=== PATIENT | male | born 1985 | race Caucasian/White ===

== ENCOUNTER 2018-05-16 17:40 | Emergency (ER) | payer OTHER, SELFPAY ==
[~2018-05-16 17:40] MED LIST: ISOVUE-370 76%-LOCM 1 ML ONE
--- NOTE | 2018-05-16 18:03 | RAD ---
SINGLE VIEW OF THE CHEST: 05/16/18 COMPARISON: None. HISTORY: Chest pain. FINDINGS: Single view of the chest shows a normal sized cardiomediastinal silhouette. The patient is status pos t aortic valve repair. There is no evidence of consolidation, mass, or pleural effusion. IMPRESSION: No evidence of acute cardiopulmonary disease. POS: [facility]
[2018-05-16 18:18] LABS: #Basophils 0.1 thou/uL (0.0-0.2); #Eosinphils 0.1 thou/uL (0.0-0.7); #Lymphocytes 1.6 thou/uL (1.20-3.40); #Monocytes 0.5 thou/uL (0.11-0.59); #Neutrophils 8.7 thou/uL (1.40-6.50); %Basophils 0.5 % (0.0-1.0); %Eosinophils 0.6 % (0.0-10.0); %Lymphocytes 14.9 % (21.0-51.0); Hemoglobin 14.3 g/dL (14.0-18.0); Mean Corpuscular HGB CONC 33.8 g/dL (32.0-36.0); Mean Corpuscular Hemoglobin 30.8 pg (27.0-31.0); Mean Platelet Volume 9.6 fL (7.4-10.4); Platelet Count 189 thou/uL (130-400); RBC Distribution Width 11.7 % (11.5-14.5); Red Blood Cell (RBC) Count 4.64 mill/uL (4.70-6.10); White Blood Cell (WBC) Count 10.9 thou/uL (4.8-10.8)
[2018-05-16 18:23] LABS: INR-International Normal Ratio 1.7; Prothrombin Time 19.8 SEC (12.0-14.7)
[2018-05-16 18:33] LABS: ALT (SGPT) 14 U/L (8-55); AST (SGOT) 17 U/L (5-34); Albumin 4.1 g/dL (3.5-5.0); Alkaline Phosphatase 88 U/L (40-150); Anion Gap 13 mmol/L (10-20); BUN (Urea Nitrogen) 13 mg/dL (8.9-20.6); Bilirubin, Total 0.4 mg/dL (0.2-1.2); CK (CPK) 111 U/L (30-200); Calc. Creatinine Clearance 0 mL/min (70-130); Calcium 9.2 mg/dL (7.8-10.44); Carbon Dioxide 25 mmol/L (22-29); Chloride 105 mmol/L (98-107); Estimated GFR-MDRD 86; Globulin 2.8 g/dL (2.4-3.5); Glucose 110 mg/dL (70-105); Lipase 26 U/L (8-78); Magnesium 2.2 mg/dL (1.6-2.6); Potassium 3.4 mmol/L (3.5-5.1); Protein, Total 6.9 g/dL (6.0-8.3); Sodium 140 mmol/L (136-145)
[2018-05-16 18:38] LABS: CKMB 0.7 ng/mL (0-6.6); Troponin I Less than 0.010 ng/mL (< 0.028)
--- NOTE | 2018-05-16 19:20 | CT ---
CTA OF THE CHEST AND ABDOMEN WITH CONTRAST 05/16/18 COMPARISON: None. HISTORY: Right sided chest pain that radiates downward towards the back that began just prior to arrival while using a sledgehammer. TECHNIQUE: Multiple contiguous axial images were obtained in a CTA of the chest and abdomen with contrast per [facility] dissection protocol. 3D sagittal and coronal MIP reformats were performed. FINDINGS: The heart is normal in size without focal cardiac abnormality. There is mild ectasia of the ascending aorta which measures 4.0 cm in greatest dimension. There is no evidence of dissection of the aorta. This includes the thoracic and abdominal aorta. No pulmonary nodules or infiltrates are seen in the lungs. No pneumothorax or pleural effusions are s een. The liver, gallbladder, adrenal glands, spleen, and pancreas are unremarkable. There are hypodense re gions in both kidneys measuring up to 2.6 cm in size which likely represents cysts. There appears to be layering calcification within the cyst in the left kidney. The visualized large and small bowel are unremarkable. No abdominal adenopathy is seen. The celiac trunk SMA and ALEXANDER are patent. A single renal artery is seen on each side without significa nt atherosclerotic disease. The chest and abdominal wall soft tissues are unremarkable. The bones are unremarkable. IMPRESSION: 1. No evidence of aortic dissection. 2. Bilateral renal cysts. POS: [facility]
== END 2018-05-16 21:36 | disposition home or self-care (01) ==
LOC: ERS 17:40
DX: S23.41XA Sprain of ribs, initial encounter (principal); I10 Essential (primary) hypertension; F32.9 Major depressive disorder, single episode, unspecified; F17.210 Nicotine dependence, cigarettes, uncomplicated; Z79.899 Other long term (current) drug therapy; X50.9XXA Other and unspecified overexertion or strenuous movements or postures, initial encounter
CPT/HCPCS: 71045; 71275; 80053; 82553; 83690; 83735; 84484; 85025; 85610; 93005; 96361; 96374; J2270

== ENCOUNTER 2019-04-04 08:36 | Observation (INO) | payer OTHER, SELFPAY ==
[2019-04-04 08:55] LABS: #Eosinphils 0.1 thou/uL (0.0-0.7); #Lymphocytes 1.4 thou/uL (1.20-3.40); #Monocytes 0.4 thou/uL (0.11-0.59); #Neutrophils 5.3 thou/uL (1.40-6.50); %Basophils 0.3 % (0.0-1.0); %Eosinophils 1.7 % (0.0-10.0); %Monocytes 5.4 % (0.0-10.0); %Neutrophils 73.6 % (42.0-75.0); Hemoglobin 15.1 g/dL (14.0-18.0); Mean Corpuscular HGB CONC 33.5 g/dL (32.0-36.0); Mean Corpuscular Hemoglobin 30.6 pg (27.0-31.0); Mean Corpuscular Volume 91.3 fL (78.0-98.0); Mean Platelet Volume 8.9 fL (7.4-10.4); Platelet Count 173 thou/uL (130-400); RBC Distribution Width 12.7 % (11.5-14.5); Red Blood Cell (RBC) Count 4.92 mill/uL (4.70-6.10); White Blood Cell (WBC) Count 7.2 thou/uL (4.8-10.8)
[2019-04-04] MEDS ORDERED: Acetaminophen 500 MG TAB ONE (08:58)
[2019-04-04] MEDS ORDERED: Nitroglycerin 0.4 MG TAB 1 EACH ONE (08:58)
[2019-04-04 09:14] LABS: PTT 27.6 SEC (22.9-36.1)
[2019-04-04 09:40] LABS: ALT (SGPT) 20 U/L (8-55); AST (SGOT) 18 U/L (5-34); Albumin 4.3 g/dL (3.5-5.0); Alkaline Phosphatase 76 U/L (40-150); Anion Gap 11 mmol/L (10-20); BUN (Urea Nitrogen) 17 mg/dL (8.9-20.6); Bilirubin, Total 0.5 mg/dL (0.2-1.2); CK (CPK) 111 U/L (30-200); Calc. Creatinine Clearance 0 mL/min (70-130); Carbon Dioxide 29 mmol/L (22-29); Chloride 106 mmol/L (98-107); Estimated GFR-MDRD Greater than 90; Globulin 2.6 g/dL (2.4-3.5); Glucose 63 mg/dL (70-105); Lipase 22 U/L (8-78); Potassium 3.7 mmol/L (3.5-5.1); Protein, Total 6.9 g/dL (6.0-8.3); Sodium 142 mmol/L (136-145)
--- NOTE | 2019-04-04 09:42 | RAD ---
RADIOGRAPH CHEST 1 VIEW: DATE: 04-04-19 HISTORY: 34-year-old male with acute chest pain. FINDINGS: There are no air space densities, pulmonary edema, pneumothorax, or cardiomegaly. The lateral costop hrenic angles are sharp. There is a prosthetic cardiac valve. There are sternotomy wires. There is no interval change compared to 05-16-18. IMPRESSION: 1. No acute cardiopulmonary findings. 2. Status post aortic valve replacement. bradley POS: [facility]
[2019-04-04] MEDS ORDERED: Morphine 4 MG/ML VIAL ONE (10:32)
[2019-04-04] MEDS ORDERED: Enoxaparin Sodium 80 MG/0.8 ML SYRINGE ONE (10:55)
[2019-04-04] MEDS ORDERED: Warfarin Sodium 5 MG TAB PO SCH (11:15)
[2019-04-04 12:30] LABS: Troponin I Less than 0.010 ng/mL (< 0.028)
[2019-04-04 13:02] VITALS: BMI 23.0
[2019-04-04] MEDS ORDERED: Acetaminophen 325 MG TAB PO PRN ×2 (13:16→14:48)
[2019-04-04] MEDS ORDERED: Ondansetron PF 4 MG/2 ML Vial IVP PRN ×2 (13:16→14:48)
[2019-04-04] MEDS ORDERED: Ondansetron ODT 4 MG TAB SL PRN (13:16)
[2019-04-04] MEDS ORDERED: Aspirin Chewable 81 MG TAB PO SCH (14:00)
[2019-04-04] MEDS ORDERED: Guaifenesin DM 100-10/5 ML UDCUP PO PRN (14:48)
[2019-04-04] MEDS ORDERED: Senokot S 8.6-50 MG TAB PO PRN (14:48)
[2019-04-04] MEDS ORDERED: Bisacodyl 10 MG SUPP PR PRN (14:48)
[2019-04-04] MEDS ORDERED: Nitroglycerin 0.4 MG TAB (25 Tab Bottle) PO PRN (14:48)
[2019-04-04] MEDS ORDERED: Enoxaparin Sodium 40 MG/0.4 ML SYRINGE SC SCH (14:48)
[2019-04-04] MEDS ORDERED: HYDROcodone/Acetaminophen 5/325 mg Tablet PO PRN (14:48)
[2019-04-04 14:57] LABS: Troponin I 0.014 ng/mL (< 0.028)
[2019-04-04] MEDS: HYDROcodone/Acetaminophen 10/325 mg Tablet PO PRN ×2 (15:43→20:18)
[2019-04-04] MEDS: Sodium Chloride 0.9% 1,000 ML IV SCH (15:48)
[2019-04-04] MEDS ORDERED: Warfarin Sodium 7.5 MG TAB PO SCH (17:00)
--- NOTE | 2019-04-04 18:09 | CON ---
DATE OF CONSULTATION: REASON FOR CONSULTATION: Chest pain and dizziness. HISTORY OF PRESENT ILLNESS: Mr. Mcdonough is a 34-year-old gentleman, who has not been seen or evaluated by Cardiology in the past. He has a history of Marfan's in addition to mechanical aortic valve replacement. His states he has not been compliant with Coumadin therapy. He is taking aspirin on a daily basis. He recently presented with dizziness. He also presented with chest pain. The dizziness has been noted over the last several weeks. Chest pain occurred x1. His EKG did show some nonspecific ST-T wave changes. PAST MEDICAL HISTORY: Previous CVA, hyperlipidemia, Marfan's, tobacco abuse, noncompliance, and previous methamphetamine use. ALLERGIES: NONE. MEDICATIONS: Aspirin. REVIEW OF SYSTEMS: Ten-point review of systems reviewed as above, otherwise negative. PHYSICAL EXAMINATION: GENERAL: Patient is a pleasant man, who is in no acute distress. The patient appears their stated age. VITAL SIGNS: Blood pressure 131/78, pulse 71, and temperature 98.5. NEUROLOGIC: The patient is alert and oriented x3 with no focal neurologic deficits. HEENT: Sclerae without icterus. Mouth has moist mucous membranes with normal pallor. NECK: No JVD. Carotid upstroke brisk. No bruits bilaterally. LUNGS: Clear to auscultation with unlabored respirations. BACK: No scoliosis or kyphosis. CARDIAC: Regular rate and rhythm with a normal aortic valve click. ABDOMEN: Soft, nontender, nondistended. No peritoneal signs present. No hepatosplenomegaly. No abnormal striae. EXTREMITIES: 2+ femoral and 2+ dorsalis pedis pulses. No cyanosis, clubbing, or edema. SKIN: No gross abnormalities. Insert a new patient please add. BACK: No scoliosis or kyphosis. LABORATORY DATA: Pertinent labs, CK and troponin negative. IMPRESSION: 1. Chest pain. 2. Nonspecific ST-T wave changes. 3. Mechanical aortic valve. RECOMMENDATIONS: At this point, we would recommend noninvasive stress study. He does have risk factors including tobacco abuse. His dizziness may be related to a TIA. He has not been taking his Coumadin. I strongly recommended that he get back on the Coumadin therapy. His states that it has been very inconvenient for him in the past. Otherwise, we would recommend a noninvasive stress study to assess for any areas of ischemia. Job ID: [id number]
--- NOTE | 2019-04-04 19:00 | HP ---
REASON FOR ADMISSION: Chest pain, dizziness, migraine headaches. HISTORY OF PRESENTING ILLNESS: The patient gives history of having dizziness for the last 2 to 3 weeks, chest pain off and on as well. It is sharp, stabbing pain. He also complained of cramping pain in his legs from yesterday. He has known history of mechanical aortic valve, and the patient is not compliant with his Coumadin. States he has no insurance, and it is hard for him to have followups. There are no complaints of palpitations, PND, or orthopnea. He states he is very active and works outside. No complaints of cough or expectoration or fever. PAST MEDICAL AND SURGICAL HISTORY: History of Marfan syndrome, prior history of mechanical aortic valve with aortic root repaired in 2006 at [facility] in [place], prior history of CVA with no residual paralysis, history of chronic migraine, history of dyslipidemia, and depression. CURRENT MEDICATIONS: 1. Citalopram 40 mg p.o. daily. 2. Losartan 100 mg p.o. daily. 3. Coumadin 5 mg and 7.5 mg to alternate. Please note, the patient is not compliant with his medications. ALLERGIES: NO KNOWN DRUG ALLERGIES. PERSONAL HISTORY: Smokes once in a while. Does not abuse alcohol. He has used methamphetamine in the past, none at present per patient. The patient has 7 children, 5 of his own, one son has Marfan's. FAMILY HISTORY: Father had history of Marfan's, he is alive and is awaiting renal transplant, he is 56 years old. Mother is healthy as far as he knows. CODE STATUS: Full. Power of rheologist is his . REVIEW OF SYSTEMS: CONSTITUTIONAL: Negative for weight loss or gain, ability to conduct usual activities. SKIN: Negative for rash, itching. EYES: Negative for double vision, pain. ENT/MOUTH: Negative for nose bleeding, neck stiffness, pain, tenderness. CARDIOVASCULAR: Negative for palpitations, dyspnea on exertion, orthopnea. RESPIRATORY: Negative for shortness of breath, wheezing, cough, hemoptysis, fever or night sweats. GASTROINTESTINAL: Negative for poor appetite, abdominal pain, heartburn, nausea , vomiting, constipation, or diarrhea. GENITOURINARY: Negative for urgency, frequency, dysuria, nocturia. MUSCULOSKELETAL: Negative for pain, swelling. NEUROLOGIC/PSYCHIATRIC: Negative for anxiety, depression. ALLERGY/IMMUNOLOGIC: Negative for skin rash, bleeding tendency. PHYSICAL EXAMINATION: GENERAL: The patient is a 34-year-old male, who is currently not in any acute distress except for migraine headache. VITAL SIGNS: Blood pressure 124/90, pulse 66 per minute, respiratory rate 16 per minute, temperature 98.3 degrees Fahrenheit, and saturating 99% on room air. NECK: Supple. No elevated JVD. HEENT: Eyes, extraocular muscles intact. Pupils are reacting to light. Oral cavity, mucous membranes are moist. No exudates or congestion. CARDIOVASCULAR: S1 and S2 heard. Mechanical click plus. Regular rhythm. RESPIRATORY: Air entry 1+ bilateral. No rales or rhonchi. ABDOMEN: Soft. Bowel sounds heard. No tenderness, rigidity, or guarding. EXTREMITIES: No peripheral edema or calf tenderness. VASCULAR: Peripheral pulses, 1+ bilateral. No ischemic ulcerations or gangrene. CENTRAL NERVOUS SYSTEM: No gross focal deficits noted. The patient is alert, awake, and oriented well. PSYCHIATRIC: The patient's mood is euthymic. No hallucinations or delusions. LABORATORY DATA: Chest x-ray done shows no acute cardiopulmonary findings. Has aortic valve seen. Electrolytes are stable. BUN 17, creatinine 0.9, serum glucose 63. Liver enzymes within normal limits. Troponin x3 is negative. Albumin is 4.3. Lipase 22. PT and INR are 13 and 1.0 and PTT 27. White count of 7, hemoglobin and hematocrit 15 and 45, platelet count 173, MCV is 91 with 73% neutrophils. CLINICAL IMPRESSION AND PLAN: The patient will be under observation on telemetry for chest pain off and on for last week and a half, which has been progressively getting worse per patient. He also has chronic dizziness. He is noncompliant with his Coumadin with mechanical aortic valve. He has received 80 mg of subcu Lovenox in the ER and he has also received 5 mg of Coumadin in the ER. We will continue his home dose of Coumadin from tomorrow. Dr. Contreras has evaluated the patient here and has scheduled him for Cardiolite stress test. We will obtain lipid profile in the morning. We will place him on full dose aspirin, small dose of Lopressor, home dose of Cozaar. He was counseled with regard to medication compliance and followups. We will continue to closely monitor him on medical floor. Echo with 2D Doppler is pending at present. Job ID: [id number] [facility]
[2019-04-04 19:39] LABS: Hemoglobin 13.3 g/dL (14.0-18.0); Platelet Count 159 thou/uL (130-400)
[2019-04-04] MEDS: Metoprolol Tartrate 25 MG TAB PO SCH (20:19)
[2019-04-04] MEDS: Famotidine 20 MG TAB PO SCH (20:19)
[2019-04-05] MEDS: HYDROcodone/Acetaminophen 10/325 mg Tablet PO PRN (04:34)
[2019-04-05 04:52] LABS: INR-International Normal Ratio 1.1; PTT 29.3 SEC (22.9-36.1); Prothrombin Time 13.9 SEC (12.0-14.7)
[2019-04-05 05:10] LABS: Anion Gap 8 mmol/L (10-20); BUN (Urea Nitrogen) 16 mg/dL (8.9-20.6); Calc. Creatinine Clearance 169 mL/min (70-130); Carbon Dioxide 28 mmol/L (22-29); Cardiac Risk 5.1 (Less than 4.5); Chloride 109 mmol/L (98-107); Cholesterol 159 mg/dl (< 200 Desired); Estimated GFR-MDRD Greater than 90; Glucose 91 mg/dL (70-105); HDL Cholesterol 31 mg/dL (>60 Neg Risk); LDL Cholesterol, Calculated 107 mg/dL; Potassium 3.6 mmol/L (3.5-5.1); Sodium 141 mmol/L (136-145); Triglycerides 106 mg/dL (Less than 150)
[2019-04-05] MEDS ORDERED: Losartan 25 MG TAB PO SCH (09:00)
[2019-04-05] MEDS ORDERED: Citalopram 20 MG TAB PO SCH (09:00)
[2019-04-05] MEDS ORDERED: Aspirin 325 mg Enteric Coated Tablet PO SCH (09:00)
[2019-04-05] MEDS ORDERED: Aspirin 81 mg Enteric Coated Tablet PO SCH (09:00)
[2019-04-05] MEDS ORDERED: ADENOSINE 60 MG/20 ML VIAL ONE (09:51)
[2019-04-05] MEDS: Famotidine 20 MG TAB PO SCH (11:22)
[2019-04-05] MEDS: Metoprolol Tartrate 25 MG TAB PO SCH (11:25)
--- NOTE | 2019-04-05 13:24 | NM ---
NM Cardiac Stress W EF WF History: Chest pain Comparison: None Findings: Stress and rest performed after the intravenous administration of 31.5 and 10.4 mCi technet ium 99m sestamibi, respectively. No scar or ischemia. Normal wall motion. Normal ejection fraction of 64%. Impression: Normal nuclear medicine cardiac stress test and ejection fraction.
[2019-04-05 16:02] VITALS: BP 144/86; TEMP 98.3
[2019-04-05] MEDS: Sodium Chloride 0.9% 1,000 ML IV SCH (16:39)
[2019-04-05] MEDS ORDERED: Warfarin Sodium 5 MG TAB PO SCH (17:00)
--- NOTE | 2019-04-07 15:53 | DIS ---
DATE OF ADMISSION: 04/04/2019 DATE OF DISCHARGE: 04/05/2019 DISCHARGE DISPOSITION: To home. PRIMARY DISCHARGE DIAGNOSES: Chest pain, dizziness, migraine headaches, history of Marfan syndrome with mechanical aortic valve and aortic root repair, prior history of cerebrovascular accident, dyslipidemia, and depression. PROCEDURES DONE DURING HOSPITALIZATION: Nuclear stress test done showed normal nuclear medicine cardiac stress test and ejection fraction. Wall motion was normal. Ejection fraction was 64%. No scar or ischemia was seen. Chest x-ray showed no acute cardiopulmonary abnormality. H and H 13 and 38 and platelet count 159. Total cholesterol 159, triglycerides 106, LDL 107, and HDL 31. Troponin x3 negative. BNP less than 10. INPATIENT CONSULT: Dr. Contreras for Cardiology. DISCHARGE MEDICATIONS: 1. Coumadin to alternate 5 mg and 7.5 mg for mechanical aortic valve. 2. Losartan 100 mg p.o. daily. 3. Citalopram 40 mg p.o. daily. ALLERGIES: NO KNOWN DRUG ALLERGIES. DISCHARGE PLAN: The patient to follow up with primary care physician in 1 week and have INR checks. BRIEF COURSE DURING HOSPITALIZATION: The patient initially came in with complaints of dizziness from last 2 to 3 weeks, which was getting worse and started to have chest pain off and on. He had a prior history of mechanical aortic valve and aortic root repair due to history of Marfan syndrome. In view of above cardiac history , the patient was placed under observation on telemetry. He has had consultation with Dr. Contreras. Three sets of troponin were negative. He has had a nuclear stress test done, which showed no signs of reversible ischemia. The patient was noncompliant with his Coumadin despite having a mechanical aortic valve. His initial INR was 1.0 on arrival. He was counseled with regard to the same. He was evaluated by Dr. Contreras for Cardiology as well. Prior to discharge, his dizziness and chest pain have completely resolved. He is ambulating and eating well prior to discharge. manager of information consultation was requested for help with outpatient management of coumadin with inr checks. He was adviced to see PCP at [facility] in 4-5 days and get regular INR checks until its therapeutic. Please note I have seen and examined patient on the day of discharge. Job ID: [id number] [facility]
--- NOTE | 2019-04-08 16:32 | EKG ---
Test Reason : Blood Pressure : / mmHG Vent. Rate : 076 BPM Atrial Rate : 076 BPM P-R Int : 152 ms QRS Dur : 096 ms QT Int : 398 ms P-R-T Axes : 061 058 080 degrees QTc Int : 447 ms Poor data quality, interpretation may be adversely affected Normal sinus rhythm Possible Left atrial enlargement Nonspecific T wave abnormality Abnormal ECG Confirmed by ZUHAIR EPREZ, IGOR ([id number]), editor continuity and script VITA LEIGH ([id number]) on 04/08/2019 4:32:21 PM Referred By: Confirmed By:IGOR MOFFETT MD
== END 2019-04-05 14:35 | disposition home or self-care (01) ==
LOC: ERS 08:36 → ERHOLD 10:10 → 2SW 12:36
PROVIDERS: ADMIT Family Medicine; ATTEND Family Medicine
DX: R07.89 Other chest pain (principal); R42 Dizziness and giddiness; G43.909 Migraine, unspecified, not intractable, without status migrainosus; E78.5 Hyperlipidemia, unspecified; F32.9 Major depressive disorder, single episode, unspecified; F17.210 Nicotine dependence, cigarettes, uncomplicated; Z86.73 Personal history of transient ischemic attack (TIA), and cerebral infarction without residual deficits; Z95.4 Presence of other heart-valve replacement; Z91.14 Patient's other noncompliance with medication regimen; Z79.01 Long term (current) use of anticoagulants; Z79.899 Other long term (current) drug therapy
CPT/HCPCS: 36415; 71045; 78452; 80048; 80053; 80061; 82550; 83690; 83880; 84484; 85025; 85610; 85730; 93005; 93017; 94760; 96361; 96372; 96374; 96375; A9500; G0378; J1650; J2270; J2405